=== PATIENT | female | born 1945 | race Caucasian/White ===

== ENCOUNTER → 2019-12-20 | Outpatient (CLI) | payer MEDICARE, OTHER ==
[~2019-12-20] MED LIST: ALBU90OI6 INH; ASCO500 PO; ASPI81CH PO; Atrovent Inha12.9 GM INH; DESL5 PO; ETOD500 PO; Fish Oil PO; GABA100 PO; LORPSEER24 PO; METO25ER PO; PROVEX-PLUS PO; TOCO1000 PO; TOCO400 PO; [UNRECOGNIZED DRUG - OTHER]; [UNRECOGNIZED DRUG - OTHER]
== END ==
LOC: PLD 13:43 → LAB SHORT 13:43
DX: L60.2 Onychogryphosis (principal); B35.1 Tinea unguium
CPT/HCPCS: 88305; 88312

== ENCOUNTER → 2020-07-23 | Outpatient (CLI) | payer MEDICARE, OTHER | END | disposition home or self-care (01) | LOC: LAB SHORT 09:32 → PLD 09:32 | DX: D48.5 Neoplasm of uncertain behavior of skin (principal) | CPT/HCPCS: 88305 ==

== ENCOUNTER → 2021-10-25 | Outpatient (CLI) | payer MEDICARE, OTHER | END | disposition home or self-care (01) | LOC: LAB SHORT 13:18 → LAB 13:18 | DX: B34.9 Viral infection, unspecified (principal) | CPT/HCPCS: 87081 ==

== ENCOUNTER 2022-04-21 07:53 | Day surgery (SDC) | payer MEDICARE, OTHER ==
[~2022-04-21] VITALS: Ht 165.1 cm; Wt 62.7 kg
[2022-04-21] MEDS ORDERED: ALBU90OI (08:18)
[2022-04-21] MEDS ORDERED: MULTI-VITAMIN1 EAC2 (08:19)
[2022-04-21] MEDS ORDERED: LETR2.5 (08:19)
[2022-04-21] MEDS ORDERED: LISI20 (08:19)
[2022-04-21] MEDS ORDERED: ZOLEDRONIC ACID4 M1 (08:19)
== END 2022-04-21 10:06 | disposition home or self-care (01) ==
LOC: ORSCSDS 07:53
PROVIDERS: Surgery
PROC: 0DBP8ZX Excision of Rectum, Via Natural or Artificial Opening Endoscopic, Diagnostic (ICD-10-PCS; principal; 2022-04-21 09:15)
DX: R19.5 Other fecal abnormalities (principal); K62.1 Rectal polyp; K64.8 Other hemorrhoids; J45.909 Unspecified asthma, uncomplicated; G47.33 Obstructive sleep apnea (adult) (pediatric); Z79.899 Other long term (current) drug therapy
CPT/HCPCS: 88305; J2704; J7120

== ENCOUNTER → 2023-12-20 | Outpatient (CLI) | payer MEDICARE, OTHER ==
[~2023-12-20] MED LIST changes: +ALBU90OI; +LETR2.5; +LISI20; +MULTI-VITAMIN1 EAC2; +ZOLEDRONIC ACID4 M1
== END ==
LOC: LAB 17:26 → LAB SHORT 17:26
DX: R21 Rash and other nonspecific skin eruption (principal)
CPT/HCPCS: 87070; 87205

== ENCOUNTER → 2025-03-05 | Outpatient (CLI) | payer MEDICARE, OTHER | LOC: LAB SHORT 10:42 → LAB 10:42 | DX: L02.415 Cutaneous abscess of right lower limb (principal) | CPT/HCPCS: 87070 ==